=== PATIENT | male | born 1965 | race Caucasian/White ===

== ENCOUNTER → 2024-03-09 09:23 | Outpatient (REF) | payer OTHER, SELFPAY | LOC: HWRAD 09:23 | PROVIDERS: ATTENDING PHYSICIAN Chiropractor; FAMILY PHYSICIAN Internal Medicine | DX: M99.03 Segmental and somatic dysfunction of lumbar region (principal) | CPT/HCPCS: 72110 ==

== ENCOUNTER 2024-04-14 06:06 | Day surgery (SDC) | payer OTHER, SELFPAY ==
[2024-04-14 06:47] VITALS: BMI 31.9
[2024-04-14 07:12] VITALS: BP 170/96
[2024-04-14] MEDS: NORMOSOL-R 1000 IV (07:14)
[2024-04-14] MEDS: TYLENOL 1000 MG PO (07:14)
--- NOTE | 2024-04-14 07:15 | W.SUR.PREOP ---
Pre-Operative Surgical Note
-
I have examined this patient prior to the performance of the scheduled procedure.
The patient's condition is unchanged from the time of the current History and
Physical and the patient is able to undergo the scheduled procedure.
--- NOTE | 2024-04-14 07:52 | W.IMMPOSTOP ---
Surgical Immed Post Op Note
-
Primary Surgeon: Wan Hi MD
Assisting Surgeon: None
Pre-op Diagnosis: Lipoma of the Back
Post-op Diagnosis: Same
Procedure Performed: Excision of lipoma of the back
Anesthesia Type: General
Specimen / Cultures: Lipoma of the back
Estimated Blood Loss: 1 cc
Complications: None
Operative Findings: 6 x 4 x 1.5 centimeter encapsulated lipoma
--- NOTE | 2024-04-14 07:53 | OR.RPT ---
Operative Report
Operative Report
Patient Name: Angel Carvajal
: 1965
Date of Operation: 04/14/2024
Preoperative Diagnosis: Lipoma, of the back
Postoperative Diagnosis: Same
Procedure(s):
Excision of lipoma of the back (6 x 4 cm)
Surgeon(s):
Dr. Hi
Concrete Grinder Operator(s):
CATHERINE Mckeon
Anesthesia: MAC
Estimated Blood Loss: [1] cc
Urine Output: None
Drains/Lines/Implants: [None]
Specimens:
1. Lipoma of the back
Indication for surgery:
This is a 58-year-old male with a lump on his back that he is known for over a year. After evaluation in the office he was diagnosed with a lipoma. After discussion of risk benefits and alternatives he elected and was consented for surgery.
Findings at the time of surgery:
Patient had a 6 x 4 x 1.5 cm, interdigitating, subcutaneous, encapsulated lipoma of the back
Details of the operation:
The patient was brought to the operating room a placed in the supine position. After appropriate sedation by anesthesia, the area of the back was prepped and draped in the usual fashion. A linear incision over natural skin line was made over the
mass and carried down through the subcutaneous tissue. The lipoma was freed circumferentially taking care not to come across the many interdigitating extensions that it had. The specimen which measured 6 x 4 x 1.5 cm was passed off the field. The
cavity was irrigated and hemostasis was achieved. The space was closed with interrupted 3-0 Vicryl sutures, followed by a running 4-0 Monocryl, followed by glue. All counts were correct at the end of procedure. The patient was then transferred to
the PACU for recovery.
Lashawn was the attending physician and performed the procedure with assistance from the PA above. The assistance of Sandee Betancourt was required due to the complexity of the procedure. During the procedure Sandee assisted with retraction, resection, and
closure of the wound. I was present for all portions of the case, excluding skin closure.
Wan Hi MD
[2024-04-14 07:56] VITALS: BP 127/71
[2024-04-14 08:10] VITALS: BP 127/71
[2024-04-14 08:20] VITALS: BP 138/73
[2024-04-14 08:35] VITALS: BP 134/70
== END 2024-04-14 08:50 | disposition home or self-care (01) ==
LOC: SDS 06:06
PROVIDERS: ATTENDING PHYSICIAN Surgery
DX: D17.1 Benign lipomatous neoplasm of skin and subcutaneous tissue of trunk (principal); R22.2 Localized swelling, mass and lump, trunk
CPT/HCPCS: 21931; 88304

== ENCOUNTER → 2024-04-21 07:10 | Outpatient (REF) | payer OTHER, SELFPAY | LOC: HWRAD 07:10 | PROVIDERS: ATTENDING PHYSICIAN Chiropractor; FAMILY PHYSICIAN Internal Medicine | DX: M99.01 Segmental and somatic dysfunction of cervical region (principal) | CPT/HCPCS: 72050 ==

== ENCOUNTER 2025-09-04 06:12 | Day surgery (SDC) | payer OTHER, SELFPAY ==
--- NOTE | 2025-08-16 12:37 | CM ---
Demographics: confirmed
Living situation: lives independently with .
Support Person Post Operatively:
History of
VN: Home Care, not currently on service
SNF: No
Outpatient: [facility], [place] encouraged patient to call and provided phone number.
Has patient purchased required equipment: yes
PCP: active
Pharmacy: [facility]
Post Operative Discharge Plan: [facility], and then transition to outpatient PT.
[2025-08-22 10:49] LABS: Hematocrit 41.5 % (39.0-52.0); Hemoglobin 13.7 g/dL (13.0-18.0); Mean Corp Hgb Conc. 33.0 g/dL (33.0-37.0); Mean Corpuscular Volume 86.3 fL (80.0-94.0); Platelet Count 264 10^3/uL (130-400); Red Cell Dist. Width 13.9 % (11.5-14.5)
[2025-08-22 11:34] LABS: ALT (SGPT) 16 U/L (0-50); AST (SGOT) 24 U/L (17-59); Albumin 4.5 g/dl (3.5-5.0); Alkaline Phosphatase 66 U/L (38-126); Blood Urea Nitrogen 20 mg/dl (9-20); Calcium 9.0 mg/dl (8.4-10.2); Carbon Dioxide 27 mmol/L (22-30); Chloride 107 mmol/L (98-107); Glucose 104 mg/dl (70-99); Potassium 5.0 mmol/L (3.5-5.1); Sodium 141 mmol/L (135-145); Total Protein 7.7 g/dl (6.3-8.2); eGFR > 60.00
[2025-08-22 12:47] LABS: Glycohemoglobin (HgbA1c) 5.7 % (4.0-5.6)
[2025-08-22 13:56] VITALS: BMI 34.9
[2025-08-23 16:39] VITALS: BMI 34.9
[2025-09-04] VITALS (12 sets, daily range): BP systolic 111–162; BP diastolic 57–96; BMI 34.9
[2025-09-04] MEDS: CELEBREX 200 MG PO (12:27)
[2025-09-04] MEDS: NORMOSOL-R/PLASMALYTE-A 1000 IV (12:27)
[2025-09-04] MEDS: TYLENOL 650 MG PO ×2 (12:27→20:16)
--- NOTE | 2025-09-04 12:35 | W.PN.UPDATE ---
Update Note
Progress Note Update
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
HTN, improving with recent medication adjustments - + parameters - monitor BP
- Ensure adequate pain control to minimize potential BP elevations
RLE DVT, provoked after remote surgery - tolerated ASA after both TKAs
- Early and frequent ambulation as tolerated
- Plasma flow devices HIGHLY encouraged for d/c use
OA s/p R TKA, 04/2022, and L TKA, 06/2022, by Dr Saini
Venous varicosities
Multilevel degenerative disc disease
Prediabetes, A1c 5.7
Obesity, BMI 34.9
Pain mgmt - the patient required ER opioids in addition to IR opioids prn after both TKAs. Will start off w/ MS Contin 15 mg 12h taper and Oxycodone prn for mod-severe breakthrough pain. Will include Tylenol, Celebrex, Decadron BID, and Gabapentin
HS. Will monitor pain and adjust meds if indicated.
[2025-09-04] MEDS: ROXICODONE 5 MG PO (17:41)
[2025-09-04] MEDS: MS CONTIN (EXTENDED RELEASE) 15 MG PO (20:16)
[2025-09-04] MEDS: ASPIRIN 325 MG PO (20:16)
[2025-09-04] MEDS: COZAAR 50 MG PO (20:16)
[2025-09-04] MEDS: COLACE 100 MG PO (20:16)
[2025-09-04] MEDS: DECADRON 4 MG PO (20:16)
[2025-09-04] MEDS: BACTROBAN 2% OINTMENT 1 APPLIC NASAL (20:17)
[2025-09-04] MEDS: SENOKOT 17.2 MG PO (20:19)
[2025-09-04] MEDS: NEURONTIN 300 MG PO (21:28)
[2025-09-04] MEDS: ANCEF 5 IV (21:28)
[2025-09-04] MEDS: PEPCID 20 MG PO (21:28)
[2025-09-05] VITALS (7 sets, daily range): BP systolic 103–172; BP diastolic 59–93; PULSE 58–68; O2SAT 96–99
[2025-09-05] MEDS: TYLENOL 650 MG PO ×3 (00:21→12:39)
[2025-09-05] MEDS: ROXICODONE 5 MG PO ×2 (00:21→05:32)
[2025-09-05] MEDS: TYLENOL PO (05:00)
[2025-09-05] MEDS: ANCEF 5 IV (05:32)
[2025-09-05] MEDS: MS CONTIN (EXTENDED RELEASE) 15 MG PO (07:51)
[2025-09-05] MEDS: NSS 500 IV (08:53)
[2025-09-05] MEDS: ASPIRIN 325 MG PO (09:18)
[2025-09-05] MEDS: COLACE 100 MG PO (09:19)
[2025-09-05] MEDS: CELEBREX 200 MG PO (09:19)
[2025-09-05] MEDS: DECADRON 4 MG PO (09:19)
[2025-09-05] MEDS: SENOKOT 17.2 MG PO (09:19)
[2025-09-05] MEDS: BACTROBAN 2% OINTMENT 1 APPLIC NASAL (09:22)
[2025-09-05] MEDS: COZAAR PO (09:30)
--- NOTE | 2025-09-05 09:35 | W.PN.ORTHO ---
Today's Communication / Plan
-
Monitor orthostatic VS.
Work w/ PT and OT as able.
Possible d/c for later today pending medical stability.
Assessment
.
Distal Motor Intact: Yes
Dressing:
Quarter-sized area of incisional bleeding towards proximal end of dressing.
Assessment:
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
DVT prophylaxis - ASA, b/l venous foot pumps
Symptomatic orthostasis - IVF bolus w/ reassessment of orthostatic VS after
- Reportedly happened after a previous joint. Pt was not initially forthcoming about this
- Encourage oral hydration
- Hold today's Losartan
- Consider Midodrine
- Hold Oxycodone for now. May need to adjust current pain med regimen should this continue
HTN, improving with recent medication adjustments - + parameters - monitor BP
- Ensure adequate pain control to minimize potential BP elevations
RLE DVT, provoked after remote surgery - tolerated ASA after both TKAs
- Early and frequent ambulation as tolerated
- Plasma flow devices HIGHLY encouraged for d/c use
OA s/p R TKA, 04/2022, and L TKA, 06/2022, by Dr Saini
Venous varicosities
Multilevel degenerative disc disease
Prediabetes, A1c 5.7
Obesity, BMI 34.9
Pain mgmt - the patient required ER opioids in addition to IR opioids prn after both TKAs. Will start off w/ MS Contin 15 mg 12h taper and Oxycodone prn for mod-severe breakthrough pain. Will include Tylenol, Celebrex, Decadron BID, and Gabapentin
HS. Will monitor pain and adjust meds if indicated.
Plan
.
Surgery / Date: Revision of R TKA w/ Dr Saini 09/04/25
DVT Prophylaxis: Aspirin
Activity:
Out of bed.
PT/OT
Discharge Plan: Home w/ Outpatient PT
Subjective
.
.:
Patient examined resting in bed.
Attempted to work w/ PT this AM; however, symptomatic orthostasis was noted.
R knee pain reportedly well controlled.
Vital Signs and Labs
.
Vital Signs and Labs:
Lab Results
08/22/25 10:12
08/22/25 10:12
Temp Pulse Resp BP Pulse Ox
97.9 F 63 18 157/79 96
09/05/25 07:44 09/05/25 07:44 09/05/25 07:44 09/05/25 07:44 09/05/25 07:44
Non-invasive Hgb result: 12.9
Physical Exam
-
HEENT: No pallor, cyanosis, or jaundice. Throat clear.
NECK: Supple. No JVD.
RESPIRATORY: Lungs clear to auscultation.
CVS: S1, S2 normal. RRR.�
ABDOMEN: Soft, non-tender. No distension. Obese.
EXTREMITIES: Expected post-surgical R knee edema. Strength equal, no calf pain with palpation/dorsiflexion. Calves soft.
PRACTICE PROFESSIONAL: AOx3. No focal deficits. senior technical trainer grossly intact
--- NOTE | 2025-09-05 10:48 | CM ---
Cm reviewed medical record. Patient confirmed appointment fo 09/07 at [facility]. CM will remain available as needed.
PLAN: [facility] with [facility].
--- NOTE | 2025-09-05 11:03 | W.DS.TRANS ---
DC Summary - Desulfurizer Machine
-
Discharge Instructions:
Sleep Apnea Risk Intermediate
Discharge Diagnosis/Procedures Mechanical failure of R TKA s/p Revision of R
TKA w/ Dr Saini 09/04/25
Diet Regular
Additional Diets Adequate hydration, minimize opioids, and wear
TEDs stockings to prevent low blood pressure/
dizziness.
Activity As tolerated,With Walker
Driving Restrictions Not until seen by your Dr
Bathing Restrictions OK to Shower
Other Services PT
Wound Care Dressing to be removed 1 week post-surgery.
Ghulam to be removed at 2 week follow-up with
surgeon's office.
Instructions:
Stand-Alone Forms: Total Hip/Knee Replacement D/C
Changes to Home Medications: Yes
Discharge Medications:
DC Medications w/original date entered in [employer]
mupirocin 2 % topical ointment 1 applic intranasal BID #1 tube 08/22/25
celecoxib 200 mg capsule (Celebrex) 200 mg PO DAILY #14 caps 08/28/25
dexamethasone 4 mg tablet 4 mg PO BID Anti-inflammatory #5 tabs 08/28/25
famotidine 20 mg tablet (Pepcid) 20 mg PO HS #30 tabs 08/28/25
gabapentin 300 mg capsule 300 mg PO HS neuropathic pain/sleep #10 caps 08/28/25
ondansetron HCl 4 mg tablet 4 mg PO Q6H PRN nausea and vomiting #30 tabs 08/28/25
morphine 15 mg tablet,extended release (MS Contin) 15 mg PO Q12H acute on chronic pain #15 tabs 08/31/25
oxycodone 5 mg tablet 5 - 10 mg (1 - 2 x 5 mg) PO Q6H PRN moderate-severe breakthrough pain #30 tabs 08/31/25
acetaminophen 325 mg tablet 650 mg (2 x 325 mg) PO Q4HWA #30 tabs 09/05/25
aspirin 325 mg tablet 325 mg PO DAILY #30 tabs 09/05/25
docusate sodium 100 mg capsule 100 mg PO BID #30 caps 09/05/25
losartan 25 mg tablet 50 mg (2 x 25 mg) PO DAILY #1 tab 09/05/25
magnesium hydroxide 400 mg/5 mL oral suspension (Milk of Magnesia) 30 ml PO HS PRN constipation #3,780 mL 09/05/25
sennosides 8.6 mg tablet ([place]-nazario) 17.2 mg (2 x 8.6 mg) PO BID #30 tabs 09/05/25
Home Medication Changes
celecoxib 200 mg capsule (Celebrex) 200 mg PO DAILY #14 caps 08/28/25
dexamethasone 4 mg tablet 4 mg PO BID Anti-inflammatory #5 tabs 08/28/25
famotidine 20 mg tablet (Pepcid) 20 mg PO HS #30 tabs 08/28/25
gabapentin 300 mg capsule 300 mg PO HS neuropathic pain/sleep #10 caps 08/28/25
ondansetron HCl 4 mg tablet 4 mg PO Q6H PRN nausea and vomiting #30 tabs 08/28/25
morphine 15 mg tablet,extended release (MS Contin) 15 mg PO Q12H acute on chronic pain #15 tabs 08/31/25
oxycodone 5 mg tablet 5 - 10 mg (1 - 2 x 5 mg) PO Q6H PRN moderate-severe breakthrough pain #30 tabs 08/31/25
acetaminophen 325 mg tablet 650 mg (2 x 325 mg) PO Q4HWA #30 tabs 09/05/25
aspirin 325 mg tablet 325 mg PO DAILY #30 tabs 09/05/25
docusate sodium 100 mg capsule 100 mg PO BID #30 caps 09/05/25
magnesium hydroxide 400 mg/5 mL oral suspension (Milk of Magnesia) 30 ml PO HS PRN constipation #3,780 mL 09/05/25
sennosides 8.6 mg tablet ([place]-nazario) 17.2 mg (2 x 8.6 mg) PO BID #30 tabs 09/05/25
Pending Results: No
== END 2025-09-05 13:15 | disposition home or self-care (01) ==
LOC: SDS 06:12
PROVIDERS: ATTENDING PHYSICIAN Specialist; FAMILY PHYSICIAN Internal Medicine; OTHER PHYSICIAN Physician Assistant
DX: T84.092A Other mechanical complication of internal right knee prosthesis, initial encounter (principal); Y79.2 Prosthetic and other implants, materials and accessory orthopedic devices associated with adverse incidents; M17.11 Unilateral primary osteoarthritis, right knee; I10 Essential (primary) hypertension; Y83.1 Surgical operation with implant of artificial internal device as the cause of abnormal reaction of the patient, or of later complication, without mention of misadventure at the time of the procedure; R73.03 Prediabetes; E66.9 Obesity, unspecified; Z68.34 Body mass index [BMI] 34.0-34.9, adult; Z79.899 Other long term (current) drug therapy; Z86.718 Personal history of other venous thrombosis and embolism
CPT/HCPCS: 27487; 36415; 73560; 80053; 83036; 85027; 86850; 86900; 86901; 87070; 93005; 97110; 97116; 97162; 97530; 97535; C1713; C1762; C1776

== ENCOUNTER 2025-09-29 06:44 | Outpatient (RCR) | payer OTHER, SELFPAY | END 2025-09-29 23:59 | disposition home or self-care (01) | LOC: RPT 06:44 | PROVIDERS: ATTENDING PHYSICIAN Specialist; FAMILY PHYSICIAN Internal Medicine | DX: Z47.1 Aftercare following joint replacement surgery (principal); Z96.652 Presence of left artificial knee joint; M62.81 Muscle weakness (generalized); R26.89 Other abnormalities of gait and mobility; Z73.6 Limitation of activities due to disability; Z96.651 Presence of right artificial knee joint | CPT/HCPCS: 97110; 97140; 97162; 97530; 97535 ==

== ENCOUNTER 2025-10-31 06:51 | Outpatient (RCR) | payer OTHER, SELFPAY | END 2025-10-31 23:59 | disposition home or self-care (01) | LOC: RPT 06:51 | PROVIDERS: ATTENDING PHYSICIAN Specialist; FAMILY PHYSICIAN Internal Medicine | DX: Z47.1 Aftercare following joint replacement surgery (principal); R26.89 Other abnormalities of gait and mobility; M62.81 Muscle weakness (generalized); Z73.6 Limitation of activities due to disability; Z96.651 Presence of right artificial knee joint; Z96.653 Presence of artificial knee joint, bilateral; Z96.652 Presence of left artificial knee joint | CPT/HCPCS: 97110; 97140; 97530 ==